=== PATIENT | female | born 1945 | race Caucasian/White ===

== ENCOUNTER → 2016-06-09 | Outpatient (REF) | payer BC | LOC: M LAB REF 09:18 | PROVIDERS: ATTEND Physician Assistant | DX: J02.9 Acute pharyngitis, unspecified (principal) ==

== ENCOUNTER → 2016-08-07 | Outpatient (CLI) | payer BC, MEDICARE ==
[2016-08-07 06:59] LABS: ALBUMIN 4.3 GM/DL (3.2-5.2); ALBUMIN/GLOBULIN RATIO 1.48 (1.00-1.93); ALKALINE PHOSPHATASE 67 U/L (45-117); ALT/SGPT 64 U/L (12-78); ANION GAP 8 MEQ/L (8-16); AST/SGOT 28 U/L (15-37); BILIRUBIN,TOTAL 0.7 MG/DL (0.2-1.0); BLOOD UREA NITROGEN 29 MG/DL (7-18); CALCIUM LEVEL 9.8 MG/DL (8.8-10.2); CARBON DIOXIDE LEVEL 25 MEQ/L (21-32); CHLORIDE LEVEL 107 MEQ/L (98-107); CHOLESTEROL LEVEL 140 MG/DL (<200); CREATININE FOR GFR 0.68 MG/DL (0.55-1.02); GLOMERULAR FILTRATION RATE > 60.0 (>39); GLUCOSE, FASTING 110 MG/DL (83-110); POTASSIUM SERUM 4.2 MEQ/L (3.5-5.1); SODIUM LEVEL 140 MEQ/L (136-145); TOTAL PROTEIN 7.2 GM/DL (6.4-8.2); TRIGLYCERIDES LEVEL 170 MG/DL (<150)
== END ==
LOC: M LAB 06:19
PROVIDERS: ATTEND Internal Medicine
DX: I10 Essential (primary) hypertension (principal)

== ENCOUNTER → 2017-08-18 | Outpatient (CLI) | payer MEDICARE | LOC: M WHC 09:50 | DX: Z12.31 Encounter for screening mammogram for malignant neoplasm of breast (principal) | CPT/HCPCS: 77067 ==

== ENCOUNTER 2018-05-14 08:36 | Day surgery (SDC) | payer MEDICARE ==
[~2018-05-14] VITALS: Ht 162.6 cm; Wt 82.9 kg
[~2018-05-14 08:36] MED LIST: AMLO1TAB37 PO; BENA20TA8 PO; CHLO125TA PO; FENO145T13 PO; METO1TAB87 PO; METO50TA7 PO; NS 1,000 ML IV ONE
[2018-05-14] MEDS ORDERED: PROPOFOL 500 MG/50 ML VIAL As Ordered ONE (09:07)
[2018-05-14] MEDS ORDERED: LIDOCAINE 2% INJ 100 MG/5 ML SDV (FOR ANES.) As Ordered ONE (09:07)
[2018-05-14] MEDS ORDERED: ePHEDrine SULFATE 25 MG/5 ML(5MG/ML) SYRINGE As Ordered ONE (09:23)
--- NOTE | 2018-05-14 09:42 | ROOR ---
Patient Name: Elizabeth Long Procedure Date: 05/14/2018 9:06 AM Date of : 1945 Age: 72 Room: [facility] Gender: Female Note Status: Finalized Procedure: Total Colonoscopy to Cecum + Cold Snare Polypectomy + Hemoclips Indications: Colon cancer screening in patient at increased risk: Colorectal cancer in mother, Colon cancer screening in patient at increased risk: Colorectal cancer in father Providers: Raymundo Dumont MD Referring MD: SIMON HUERTA MD Requesting Provider: Medicines: Monitored Anesthesia Care Complications: No immediate complications. Procedure: Pre-Anesthesia Assessment: - The heart rate, respiratory rate, oxygen saturations, blood pressure, adequacy of pulmonary ventilation, and response to care were monitored throughout the procedure. The Colonoscope was introduced through the anus and advanced to the cecum, identified by appendiceal orifice and ileocecal valve. The colonoscopy was performed without difficulty. The patient tolerated the procedure well. The quality of the bowel preparation was excellent. Findings: The perianal and digital rectal examinations were normal. Non-bleeding internal hemorrhoids were found during retroflexion. The hemorrhoids were small and Grade I (internal hemorrhoids that do not prolapse). Scattered small-mouthed diverticula were found in the recto-sigmoid colon, sigmoid colon and descending colon. A small polyp was found in the transverse colon. The polyp was sessile. The polyp was removed with a jumbo cold forceps. Resection and retrieval were complete. A medium polyp was found at 60 cm proximal to the anus. The polyp was sessile. The polyp was removed with a cold snare. Resection and retrieval were complete. To prevent bleeding after the polypectomy, one hemostatic clip was successfully placed (MR conditional). There was no bleeding at the end of the procedure. A localized area of mildly erythematous and granular mucosa was found at 25 cm proximal to the anus. Biopsies were taken with a cold forceps for histology. A localized area of mildly granular mucosa was found at 20 cm proximal to the anus. Biopsies were taken with a cold forceps for histology. The exam was otherwise without abnormality on direct and retroflexion views. The terminal ileum appeared normal. Impression: - Non-bleeding internal hemorrhoids. - Diverticulosis in the recto-sigmoid colon, in the sigmoid colon and in the descending colon. - One small polyp in the transverse colon, removed with a jumbo cold forceps. Resected and retrieved. - One medium polyp at 60 cm proximal to the anus, removed with a cold snare. Resected and retrieved. Clip (MR conditional) was placed. - Erythematous and granular mucosa at 25 cm proximal to the anus. Biopsied. - Granular mucosa at 20 cm proximal to the anus. Biopsied. - The examination was otherwise normal on direct and retroflexion views. - The examined portion of the ileum was normal. - The exam was otherwise normal to the cecum. Recommendation: - Patient has a contact number available for emergencies. The signs and symptoms of potential delayed complications were discussed with the patient. Return to normal activities tomorrow. Written discharge instructions were provided to the patient. - High fiber diet. - Discharge patient to home. - Continue present medications. - Await pathology results. - Telephone GI clinic for pathology results in 1 week. - Repeat colonoscopy for surveillance based on pathology results. - The findings and recommendations were discussed with the patient's family. Raymundo Dumont MD Raymundo Dumont MD 05/14/2018 9:42:22 AM This report has been signed electronically. Number of Addenda: 0 Note Initiated On: 05/14/2018 9:06 AM Estimated Blood Loss: Estimated blood loss: none.
[2018-05-14 10:05] VITALS: BP 114/57
== END 2018-05-14 10:30 | disposition home or self-care (01) ==
LOC: M OPP 08:36
PROVIDERS: ATTEND Internal Medicine Gastroenterology
DX: Z12.11 Encounter for screening for malignant neoplasm of colon (principal); Z80.0 Family history of malignant neoplasm of digestive organs; K64.0 First degree hemorrhoids; D12.3 Benign neoplasm of transverse colon; K63.89 Other specified diseases of intestine; K57.30 Diverticulosis of large intestine without perforation or abscess without bleeding

== ENCOUNTER → 2018-09-20 | Outpatient (CLI) | payer MEDICARE ==
[~2018-09-20] MED LIST changes: -FENO145T13 PO; +FENO145T7 PO; -NS 1,000 ML IV ONE
--- NOTE | 2018-09-20 12:35 | REP ---
PA and lateral chest: Comparison is 08/27/2016. The lung chacko are clear. The cardiac size is normal. The alka, mediastinum, and skeletal structures are unremarkable except for interim surgery in the distal right clavicle. Impression: Essentially negative PA and lateral chest. Electronically Signed by Reynold Grove MD 09/20/2018 12:27 P
== END ==
LOC: M WUC 11:37
PROVIDERS: ATTEND Internal Medicine
DX: J44.9 Chronic obstructive pulmonary disease, unspecified (principal)

== ENCOUNTER 2020-03-09 14:08 | Emergency (ER) | payer MEDICARE ==
[~2020-03-09] VITALS: Ht 162.6 cm; Wt 84.6 kg
[2020-03-09] MEDS ORDERED: AMLO5CAP45 PO (14:45)
[2020-03-09] MEDS ORDERED: BREO1INH INH (14:45)
--- NOTE | 2020-03-09 14:50 | REP ---
INDICATION: left weak COMPARISON: None. TECHNIQUE: Axial noncontrast images from the skull base to the thoracic inlet with coronal reformations. This CT examination was performed using the following dose reduction techniques: Automated exposure control, adjustment of mA and/or kv according to the patient's size, and use of iterative reconstruction technique. FINDINGS: Age-related atrophy and microvascular ischemic changes are appreciated. The ventricles and sulci are symmetric. Magana-white differentiation is maintained. There is no evidence for acute intracranial hemorrhage, mass/mass effect, pathology or infarction. No extra-axial fluid collection. Calvarium is intact. Paranasal sinuses and mastoid air cells are clear. IMPRESSION: Age related atrophy and microvascular ischemic changes. No acute intracranial hemorrhage, infarction, or mass/mass effect. <Electronically signed by Magnus Blankenship > 03/09/20 [id number]
[2020-03-09] MEDS ORDERED: NS 1,000 ML IV SCH ×2 (15:30→19:23)
[2020-03-09 15:43] LABS: BASO % 0.4 % (0.0-1.0); EOS % 0.1 % (0.0-3.0); HEMATOCRIT 62.4 % (36.0-47.0); HEMOGLOBIN 18.9 g/dl (12.0-15.5); LYMPH # 0.5 10^3/uL (1.5-5.0); LYMPH % 4.9 % (24.0-44.0); MEAN CORPUSCULAR HEMOGLOBIN 30.5 pg (27.0-33.0); MEAN CORPUSCULAR HGB CONC 30.3 g/dl (32.0-36.5); MEAN CORPUSCULAR VOLUME 100.8 fl (80.0-96.0); MONO # 0.6 10^3/uL (0.0-0.8); MONO % 5.8 % (0.0-5.0); NEUTROPHILS # 9.7 10^3/uL (1.5-8.5); NEUTROPHILS % 88.2 % (36.0-66.0); PLATELET COUNT, AUTOMATED 234 10^3/uL (150-450); RED BLOOD COUNT 6.19 10^6/uL (4.00-5.40)
[2020-03-09] MEDS ORDERED: CHLORTHALIDONE 12.5MG PER 1/2 TABLET PO ONE (15:45)
[2020-03-09] MEDS ORDERED: METOPROLOL TART 50 MG TAB PO ONE (15:45)
[2020-03-09] MEDS ORDERED: BENAZEPRIL 20 MG TAB PO ONE (15:45)
[2020-03-09] MEDS ORDERED: amLODIPine 5 MG TAB PO ONE (15:45)
--- NOTE | 2020-03-09 16:28 | REP ---
INDICATION: CVA COMPARISON: 09/20/2018 TECHNIQUE: Portable AP view of the chest FINDINGS: The mediastinum and cardiac silhouette are stable and within normal limits for portable technique. The lung chacko are clear without acute consolidation, effusion, or pneumothorax. Skeletal structures are intact. IMPRESSION: No acute cardiopulmonary process appreciated. <Electronically signed by Magnus Blankenship > 03/09/20 [id number]
[2020-03-09 16:38] LABS: RSV AMPLIFICATION NEGATIVE (NEGATIVE)
[2020-03-09 17:08] LABS: INR 1.12; PROTHROMBIN TIME 14.7 SECONDS (12.5-14.3)
[2020-03-09] MEDS ORDERED: LABETALOL 100MG/20ML VIAL IV STA ×3 (17:33→22:25)
[2020-03-09 18:18] LABS: ALT/SGPT 806 U/L (12-78); BILIRUBIN,DIRECT 2.1 MG/DL (0.0-0.2); BILIRUBIN,TOTAL 3.2 MG/DL (0.2-1.0); BLOOD UREA NITROGEN 36 MG/DL (7-18); CALCIUM LEVEL 9.2 MG/DL (8.8-10.2); CARBON DIOXIDE LEVEL 17 MEQ/L (21-32); CHLORIDE LEVEL 108 MEQ/L (98-107); CK-MB VALUE MASS 2.7 NG/ML (<3.6); CPK CREATINE PHOSPHOKINASE 159 U/L (26-192); CREATININE FOR GFR 1.66 MG/DL (0.55-1.30); GLOMERULAR FILTRATION RATE 32.2 (>39); GLUCOSE, FASTING 285 MG/DL (70-100); SODIUM LEVEL 138 MEQ/L (136-145); TOTAL PROTEIN 7.3 GM/DL (6.4-8.2); TROPONIN I < 0.02 NG/ML (< 0.10)
--- NOTE | 2020-03-09 18:38 | REPVR ---
PROCEDURE INFORMATION: Exam: CT Abdomen And Pelvis Without Contrast Exam date and time: 03/09/2020 5:46 PM Age: 74 years old Clinical indication: Abdominal pain; Generalized; Additional info: Abd pain TECHNIQUE: Imaging protocol: Computed tomography of the abdomen and pelvis without contrast. Radiation optimization: All CT scans at this facility use at least one of these dose optimization techniques: automated exposure control; mA and/or kV adjustment per patient size (includes targeted exams where dose is matched to clinical indication); or iterative reconstruction. COMPARISON: No relevant prior studies available. FINDINGS: Lungs: No suspicious mass or airspace process in the visualized lung bases. Mediastinal space: Hiatal hernia is present measuring 7 cm. Liver: Liver is enlarged and decreased in density suggesting hepatic steatosis. Gallbladder and bile ducts: Gallstones are present in the gallbladder lumen. No adjacent fluid or duct dilatation. Pancreas: Pancreas is diffusely edematous with peripancreatic stranding and non organized fluid. No obvious calcified duct stone or organized, drainable fluid collection. Density of the peripancreatic fluid is transudate and not hemorrhagic density. Spleen: Noncontrast spleen shows no obvious focal deformity. Adrenal glands: Adrenal glands are normal in appearance. Kidneys and ureters: Noncontrast kidneys show no stone or obstruction. Simple fluid density exophytic 14 mm posterior left renal cyst, requiring no follow-up, and similar posterior lower pole 14 mm left renal simple cyst measuring 6 mm, also requiring no follow-up. Stomach and bowel: No evidence of small bowel obstruction. Diverticular changes are present within the colon without inflammation. Appendix: Appendix is not seen. No RLQ inflammation to suggest appendicitis. Intraperitoneal space: No pneumoperitoneum. Vasculature: Atherosclerotic change present in the aorta, without aneurysm. Lymph nodes: No enlarged lymph nodes. Urinary bladder: Urinary bladder appears normal. Reproductive: Uterus is surgically absent. Bones/joints: Degenerative changes are seen in the lumbar spine with disc height loss, endplate osteophytes and hypertrophic facet arthropathy. Soft tissues: Unremarkable. Exam limitations: Limited evaluation without enteric or IV contrast. Limited by significant artifact resulting from the patient being scanned with the arms over the upper abdomen. IMPRESSION: 1. Acute pancreatitis with diffuse pancreatic enlargement/edema, peripancreatic inflammation and non organized peripancreatic fluid. No obvious pancreatic air or organized drainable collection. 2. Cholelithiasis. 3. Hepatomegaly and hepatic steatosis. 4. Large hiatal hernia measuring 7 cm. COMMENTS: Consistent with the [employer]'s Incidental Findings Committee white paper (J Am Tino Radiol 2018): Any incidental renal lesion less than 1 cm or classified as too small to characterize, or any incidental cystic renal lesion characterized as simple-appearing, is likely benign. No follow-up imaging is recommended for these lesions per consensus recommendations based on imaging criteria. Electronically signed by: Joe Santiago On 03/09/2020 18:38:33 PM
[2020-03-09] MEDS ORDERED: PIPERACILLIN/TAZOBACTAM SOD 3.375 GM in D5W MINI-BAG PLUS 50 ML IV ONE (18:45)
[2020-03-09 19:14] LABS: LIPASE 11029 U/L (73-393)
[2020-03-09] MEDS ORDERED: AMLOD/BENAZEPRIL PO (19:16)
[2020-03-09] MEDS ORDERED: CHLO25TA PO (19:18)
[2020-03-09] MEDS ORDERED: METO1TAB7 PO (19:18)
[2020-03-09] MEDS ORDERED: MED REC COMMENT (19:22)
[2020-03-09] MEDS ORDERED: OLANZapine INTRAMUSCULAR 10MG VIAL IM STA (20:04)
[2020-03-09] MEDS ORDERED: LORazepam 2 MG/ML VIAL IV STA (20:04)
--- NOTE | 2020-03-09 20:30 | REPVR ---
PROCEDURE INFORMATION: Exam: MR Angiogram Head Without Contrast, Arteries Exam date and time: 03/09/2020 8:11 PM Age: 74 years old Clinical indication: Patient HX: Ruq pain, lt arm weakness, gall stones and pancreatitis found on CT on pacs; Additional info: Left arm weak TECHNIQUE: Imaging protocol: MR angiogram head without contrast. Exam focused on the arteries. 3D rendering (Not supervised by radiologist): MIP and/or 3D reconstructed images were created by the technologist. Other technique: MRA is recommended to evaluate for vascular structures. COMPARISON: CT Head without contrast 03/09/2020 2:33 PM FINDINGS: ANTERIOR CIRCULATION: Right internal carotid artery: Intracranial segment is patent with no significant stenosis. No aneurysm. Right middle cerebral artery: No occlusion or significant stenosis. No aneurysm. Right anterior cerebral artery: No occlusion or significant stenosis. No aneurysm. Left internal carotid artery: Intracranial segment is patent with no significant stenosis. No aneurysm. Left middle cerebral artery: No occlusion or significant stenosis. No aneurysm. Left anterior cerebral artery: No occlusion or significant stenosis. No aneurysm. POSTERIOR CIRCULATION: Right vertebral artery: No occlusion or significant stenosis. No aneurysm. Left vertebral artery: No occlusion or significant stenosis. No aneurysm. Basilar artery: No occlusion or significant stenosis. No aneurysm. Right posterior cerebral artery: Complete occlusion of the right posterior cerebral artery. Left posterior cerebral artery: No occlusion or significant stenosis. No aneurysm. IMPRESSION: Complete occlusion of the right posterior cerebral artery. PROCEDURE INFORMATION: Exam: MR Head Without Contrast Exam date and time: 03/09/2020 8:11 PM Age: 74 years old Clinical indication: Patient HX: Ruq pain, lt arm weakness, gall stones and pancreatitis found on CT on pacs; Additional info: Left arm weak TECHNIQUE: Imaging protocol: MR of the head without contrast. Other technique: MRA is recommended to evaluate for vascular structures. COMPARISON: CT Head without contrast 03/09/2020 2:33 PM FINDINGS: Limitations: Examination is limited markedly by motion artifact. Prominent foci of restricted diffusion within the right thalamus, right occipital lobe, and right temporal lobe, compatible with acute right DIRECTOR OF EM[employer]GENCY NURSING territory infarct. Additional small scattered foci of restricted diffusion within the left occipital lobe (left [employer] territory). These findings are as demonstrated on DWI and ADC sequences. Remaining MR sequences are markedly limited by motion artifact. No definite midline shift or mass effect. No ventriculomegaly. IMPRESSION: Large acute right [employer] territory infarct. Additional scattered foci of restricted diffusion within the left occipital lobe concerning for additional acute infarcts (left [employer] OF [employer] NURSING territory). Note: Examination markedly limited by motion artifact. On prior head CT performed on same date, there are findings concerning for small foci of acute subarachnoid hemorrhage within left parietal sulci. Electronically signed by: Sebastian Pena On 03/09/2020 20:31:10 PM
--- NOTE | 2020-03-09 20:37 | REPVR ---
PROCEDURE INFORMATION: Exam: MR Angiogram Head Without Contrast, Arteries Exam date and time: 03/09/2020 8:11 PM Age: 74 years old Clinical indication: Patient HX: Ruq pain, lt arm weakness, gall stones and pancreatitis found on CT on pacs; Additional info: Left arm weak TECHNIQUE: Imaging protocol: MR angiogram head without contrast. Exam focused on the arteries. 3D rendering (Not supervised by radiologist): MIP and/or 3D reconstructed images were created by the technologist. Other technique: MRA is recommended to evaluate for vascular structures. COMPARISON: CT Head without contrast 03/09/2020 2:33 PM FINDINGS: ANTERIOR CIRCULATION: Right internal carotid artery: Intracranial segment is patent with no significant stenosis. No aneurysm. Right middle cerebral artery: No occlusion or significant stenosis. No aneurysm. Right anterior cerebral artery: No occlusion or significant stenosis. No aneurysm. Left internal carotid artery: Intracranial segment is patent with no significant stenosis. No aneurysm. Left middle cerebral artery: No occlusion or significant stenosis. No aneurysm. Left anterior cerebral artery: No occlusion or significant stenosis. No aneurysm. POSTERIOR CIRCULATION: Right vertebral artery: No occlusion or significant stenosis. No aneurysm. Left vertebral artery: No occlusion or significant stenosis. No aneurysm. Basilar artery: No occlusion or significant stenosis. No aneurysm. Right posterior cerebral artery: Complete occlusion of the right posterior cerebral artery. Left posterior cerebral artery: No occlusion or significant stenosis. No aneurysm. IMPRESSION: Complete occlusion of the right posterior cerebral artery. PROCEDURE INFORMATION: Exam: MR Head Without Contrast Exam date and time: 03/09/2020 8:11 PM Age: 74 years old Clinical indication: Patient HX: Ruq pain, lt arm weakness, gall stones and pancreatitis found on CT on pacs; Additional info: Left arm weak TECHNIQUE: Imaging protocol: MR of the head without contrast. Other technique: MRA is recommended to evaluate for vascular structures. COMPARISON: CT Head without contrast 03/09/2020 2:33 PM FINDINGS: Limitations: Examination is limited markedly by motion artifact. Prominent foci of restricted diffusion within the right thalamus, right occipital lobe, and right temporal lobe, compatible with acute right CARDIAC RN territory infarct. Additional small scattered foci of restricted diffusion within the left occipital lobe (left CARDIAC RN territory). These findings are as demonstrated on DWI and ADC sequences. Remaining MR sequences are markedly limited by motion artifact. No definite midline shift or mass effect. No ventriculomegaly. IMPRESSION: Large acute right CARDIAC RN territory infarct. Additional scattered foci of restricted diffusion within the left occipital lobe concerning for additional acute infarcts (left CARDIAC RN territory). Note: Examination markedly limited by motion artifact. On prior head CT performed on same date, there are findings concerning for small foci of acute subarachnoid hemorrhage within left parietal sulci. Electronically signed by: Sebastian Pena On 03/09/2020 20:31:10 PM
--- NOTE | 2020-03-09 20:40 | HPEPDOC ---
General Date of Admission Mar 09, 2020 at 18:43 Date of Service: Mar 09, 2020 Chief Complaint The patient is a 74-year-old female admitted with a reason for visit of Altered Mental Status/Hypertensive Emergency. Source: Patient, Family History of Present Illness Mrs. Long is a 74 year old female with COPD, current smoker, and resistant hypertension who presents to the ED after a fall. Patient story is inconsistent, and I spoke with both ED provider and daughter (Sho Garcia, ). About 1 week ago, patient tells me she started to have abdominal pain. Her appe tite was not great. Since her appetite was poor, she told me she did not take her blood pressure medications yesterday (Patient's friend reported that it was this morning, she did not take her medications). She was last seen normal at 9PM. Around 1PM today, she fell out of bed and came to the ED. While in the ED, she was found to have left sided weakness and hypertension with BP consistently in the 230s/110s. She could lift left arm up, but not keep left arm up. Left leg had drift when lifted. No problems with right arm or right leg. No facial droop or slurred speech. EOMI. Patient does seen confused and disorientated. ED had already given metoprolol tartrate, chlorthalidone, amlodipine, and benazepril. I remeasured BP and blood pressure was 211/110. After placing admission orders, ED had given labetalol and blood pressure dropped to 153/86. In addition, the official read for the CT abd/pelvis returned demonstrating acute pancreatitis. I called daughter to update her and let her kn ow we are ordering an MRI to look for an ischemic stroke and MRCP for gallstone pancreatitis or choledocholithiasis. Home Medications Scheduled Chlorthalidone (Chlorthalidone) 25 Mg Tablet, 25 MG PO DAILY, (Reported) Fluticasone/Vilanterol (Breo Ellipta 100-25 Mcg INH) 1 Each Blst.w.dev, 1 PUFF INH DAILY, (Reported) Metoprolol Succinate (Metoprolol Succinate) 50 Mg Tab.er.24h, 50 MG PO DAILY, (Reported) [Amlod/Benazepril] 5,/20 , 1 TAB PO DAILY, (Reported) Allergies Coded Allergies: No Known Allergies (Unverified , 03/09/20) Past Medical History Medical History 1. Resistant hypertension 2. COPD 3. Tobacco use Surgical History 1. Hernia surgery 2. Hysterectomy 3. 2 exploratory lap 4. Colonoscopy Family History Patient does not know parent's past medical history Social History * Smoker: current smoker (Long time, but does not know how long. About 1ppd) Alcohol: Denies Drugs: denies Of note, patient has AMS during recording of social history A-FIB/CHADSVASC A-FIB History Current/History of A-Fib/PAF?: No Review of Systems Constitutional: Denies: Chills, Fever Eyes: Denies: Vision change ENT: Reports: Head Aches Skin: Denies: Rash Pulmonary: Reports: Dyspnea Cardiovascular: Denies: Chest Pain Gastrointestinal: Reports: Nausea, Abdominal Pain Genitourinary: Denies: Dysuria Hematologic: Denies: Bruising Neurological: Reports: Weakness Physical Examination General Exam: Positive: Cooperative, Mild Distress Eye Exam: Positive: EOMI; Negative: Sclera icteric Neck Exam: Positive: Supple Chest Exam: Positive: Clear to auscultation; Negative: Rales, Rhonchi, Wheezing Heart Exam: Positive: Rate Normal, Regular Rhythm Abdomen Exam: Positive: Normal bowel sounds, Tenderness Extremity Exam: Negative: Edema Skin Exam: Positive: Nl turgor and temperature Neuro Exam: Positive: Cranial Nerves 3-12 NL Psych Exam: Negative: Memory Intact, Oriented x 3 Vital Signs Vital Signs Date Time Temp Pulse Resp B/P (MAP) Pulse Ox O2 Delivery O2 Flow Rate FiO2 03/09/20 18:46 153/86 (108) 03/09/20 18:45 84 90 03/09/20 18:30 18 Room Air 03/09/20 14:27 97.4 Laboratory Data Labs 24H Laboratory Tests 2 03/09/20 15:05: Immature Granulocyte % (Auto) 0.6, Neutrophils (%) (Auto) 88.2H, Lymphocytes (%) (Auto) 4.9L, Monocytes (%) (Auto) 5.8H, Eosinophils (%) (Auto) 0.1, Basophils (%) (Auto) 0.4, Neutrophils # (Auto) 9.7H, Lymphocytes # (Auto) 0.5L, Monocytes # (Auto) 0.6, Eosinophils # (Auto) 0.0, Basophils # (Auto) 0.0, Nucleated Red Blood Cells % (auto) 0.0, Coronavirus (COVID-19)(PCR) NEGATIVE, Influenza Type A (RT-PCR) NEGATIVE, Influenza Type B (RT-PCR) NEGATIVE, Respiratory Syncytial Virus (PCR) NEGATIVE 03/09/20 16:44: Prothrombin Time 14.7H, Prothromb Time International Ratio 1.12, Activated Partial Thromboplast Time 34.0, Anion Gap 13, Glomerular Filtration Rate 32.2L, Calcium Level 9.2, Total Bilirubin 3.2H, Direct Bilirubin 2.1H, Aspartate Amino Transf (AST/SGOT) 421H, Alanine Aminotransferase (ALT/SGPT) 806H, Alkaline Phosphatase 85, Total Creatine Kinase 159, Creatine Kinase MB 2.7, Creatine Kinase MB Relative Index 1.70, Troponin I < 0.02, Total Protein 7.3, Albumin 4.0, Albumin/Globulin Ratio 1.2 03/09/20 18:20: Urine Color VLAD, Urine Appearance CLOUDYH, Urine pH 5.0, Urine Specific Walker 1.023, Urine Protein 2+H, Urine Glucose (UA) NEGATIVE, Urine Ketones NEGATIVE, Urine Blood 1+H, Urine Nitrite NEGATIVE, Urine Bilirubin 1+H, Urine Urobilinogen 2.0H, Urine Leukocyte Esterase 2+H, Urine WBC (Auto) 65H, Urine RBC (Auto) 6H, Urine Hyaline Casts (Auto) 0, Urine Bacteria (Auto) 2+H, Urine Squamous Epithelial Cells 1, Urine Sperm (Auto) 03/09/20 18:28: Lactic Acid Level 2.4*H, Ammonia 17, Lipase 17382W CBC/BMP Laboratory Tests 03/09/20 15:05 03/09/20 16:44 Microbiology Microbiology 03/09/20 Urine Culture, Received Pending 03/09/20 Blood Culture, Received Pending Assessment/Plan Mrs. Long is a 74 year old female with tobacco use and resistant hypertension here with hypertensive urgency/emergency, stroke like symptoms of left sided weakness, and pancreatitis. A stat MRI of head has been requested. Called nursing banana ripening room supervisor to call in can technician. If here is an ischemic stroke, patient should be allowed permissive hypertension. If there is no stroke, then should be treated as hypertensive emergency. A stat MRCP has been requested. CT abd/pelvis does demonstrate gall stones, but there is no CBD dilatation. Labs are suggestive of gallstone pancreatitis with elevated AST (421) and ALT (806). Total bili also elevated at 3.2. She may have passed a gallstone which would explain the findings. She could still have a gallstone as well. If gallstone is present, she will need to be transferred to a facility that can perform an ERCP Otherwise, will waiting for results, we will treat acute pancreatitis with IVF and strict NPO. Other differential for pancreatitis includes medications (she is on ACEi and thiazides), triglycerides, autoimmune, or idiopathic. Plan / VTE VTE Prophylaxis Ordered?: Yes Plan Plan 1. Left sided weakness -May be secondary to hypertensive emergency vs ischemic stroke -If stroke, allow for permissive hypertension -If hypertensive emergency, lower BP slowly 2. Hypertension -Non-compliant with home blood pressure medications due to N/V/abd pain -At home on chlorthalidone, metoprolol succinate, amlodipine, and benazepril -See first assessment and plan -Will need to use IV blood pressure control -End organ damage seen in kidney, liver, and gallbladder 3. Acute pancreatitis -Abdominal pain, N/V/anorexia, elevated lipase, and CT imaging suggest acute pancreatitis -Possible gallstone pancreatitis. Suggested by labs, but not seen on imaging -STAT MRCP, may need transfer -Other causes would be medications (chlorthalidone/benazepril) -NPO and aggressive IVF -Check triglycerides -Trend CMP and lipase (75882) 4. Transaminitis -Elevated AST (421) and ALT (806) -Gallstones in gallbladder -Gallstone pancreatitis vs end organ damage from hypertension -Pending MRCP -Trend CMP 5. Acute kidney injury -Acute pancreatitis and poor oral intake -Hypertensive damage may also cause ELINA -IVF and supportive care 6. Polycythemia -May be secondary to tobacco use vs dehydration from acute pancreatitis -Trend and treat acute pancreatitis 7. UTI -UA suggestive of infection -Renally dose Zosyn -Pending urine cultures 8. DVT ppx -SCD and TEDs Disposition: if MRCP does demonstrate gallstone pancreatitis, she will need to be transferred for ERCP FIOR BROWER DO Mar 09, 2020 20:40
[2020-03-09 20:48] LABS: TRIGLYCERIDES LEVEL 320 MG/DL (<150)
[2020-03-09] MEDS ORDERED: PIPERACILLIN/TAZOBACTAM SOD 2.25 GM in D5W MINI-BAG PLUS 50 ML IV SCH (22:00)
--- NOTE | 2020-03-09 22:13 | CR.PDOC ---
General Date of Consultation: Mar 09, 2020 Consultation REASON FOR CONSULTATION/CHIEF COMPLAINT: Left sided weakness, abdominal pain HISTORY OF PRESENT ILLNESS: Mrs. Long is a 74 year old female with COPD, current smoker, and resistant hypertension who presents to the ED after a fall. Patient story is inconsistent, and I spoke with both ED provider and daughter (Sho Story, ). About 1 week ago, patient tells me she started to have abdominal pain. Her appetite was not great. Since her appetite was poor, she told me she did not take her blood pressure medications yesterday (Patient's friend reported that it was this morning, she did not take her medications). She was last seen normal at 9PM. Around 1PM today, she fell out of bed and came to the ED. While in the ED, she was found to have left sided weakness and hypertension with BP consistently in the 230s/110s. She could lift left arm up, but not keep left arm up. Left leg had drift when lifted. No problems with right arm or right leg. No facial droop or slurred speech. EOMI. Patient does seen confused and disorientated. ED had already given metoprolol tartrate, chlorthalidone, amlodipine, and benazepril. Stat MRI was ordered. Radiologist called for critical report. 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 and acute subarachnoid hemorrhage within left parietal sulci. Spoke with our neurologist, and he recommended transfer. Our ER contacted [facility] for transfer and they accepted. ALLERGIES: Please see below. HOME MEDICATIONS: Please see below. PAST MEDICAL HISTORY: 1. Resistant hypertension 2. COPD 3. Tobacco use PAST SURGICAL HISTORY: 1. Hernia surgery 2. Hysterectomy 3. 2 exploratory lap 4. Colonoscopy FAMILY HISTORY: Patient does not know parent's past medical history SOCIAL HISTORY: Tobacco use: Current smoker, 1ppd, she does not know how long she smoked for ETOH: Denies Illicit drug use: Denies REVIEW OF SYSTEMS: Constitutional: Denies: Chills, Fever Eyes: Denies: Vision change ENT: Reports: Head Aches Skin: Denies: Rash Pulmonary: Reports: Dyspnea Cardiovascular: Denies: Chest Pain Gastrointestinal: Reports: Nausea, Abdominal Pain Genitourinary: Denies: Dysuria Hematologic: Denies: Bruising Neurological: Reports: Weakness PHYSICAL EXAMINATION: VITAL SIGNS: Please see below. General Exam: Positive: Cooperative, Mild Distress Eye Exam: Positive: EOMI; Negative: Sclera icteric Neck Exam: Positive: Supple Chest Exam: Positive: Clear to auscultation; Negative: Rales, Rhonchi, Wheezing Heart Exam: Positive: Rate Normal, Regular Rhythm Abdomen Exam: Positive: Normal bowel sounds, Tenderness Extremity Exam: Negative: Edema Skin Exam: Positive: Nl turgor and temperature Neuro Exam: Positive: Cranial Nerves 3-12 NL Psych Exam: Negative: Memory Intact, Oriented x 3 LABORATORY DATA: Please see below. ASSESSMENT/PLAN: 1. Acute subarachnoid hemorrhage within left parietal sulci -Initial CT head read did not mention hemorrhage -MRI radiologist looked at CT head read and commented that there is subarachnoid hemorrhage -Contacted Neurology, Dr. Tejada who recommended transfer -ED to ED transfer to [facility] -Recommend BP control to prevent worsening hemorrhage 2. 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 Resistant Hypertension -Non-compliant with home blood pressure medications due to N/V/abd pain -At home on chlorthalidone, metoprolol succinate, amlodipine, and benazepril -Will need to use IV blood pressure control -End organ damage seen in kidney, liver, and gallbladder 3. Acute pancreatitis -Abdominal pain, N/V/anorexia, elevated lipase, and CT imaging suggest acute pancreatitis -Possible gallstone pancreatitis. Suggested by labs, but not seen on imaging -Recommend MRCP -Other causes would be medications (chlorthalidone/benazepril) -NPO -Check triglycerides -Trend CMP and lipase (04190) 4. Transaminitis -Elevated AST (421) and ALT (806) -Gallstones in gallbladder -Gallstone pancreatitis vs end organ damage from hypertension -Pending MRCP -Trend CMP 5. Acute kidney injury -Acute pancreatitis and poor oral intake -Hypertensive damage may also cause ELINA -IVF and supportive care 6. Polycythemia -May be secondary to tobacco use vs dehydration from acute pancreatitis -Trend 7. UTI -UA suggestive of infection -Renally dose Zosyn -Pending urine cultures 8. DVT ppx -SCD and TEDs Disposition: Being transferred to [facility] for ICH. Thank you for consulting us. We will sign off as patient is being transferred to [facility]. Vital Signs/I&O Vital Signs Date Time Temp Pulse Resp B/P (MAP) Pulse Ox O2 Delivery O2 Flow Rate FiO2 03/09/20 18:46 153/86 (108) 03/09/20 18:45 84 90 03/09/20 18:30 18 Room Air 03/09/20 14:27 97.4 Laboratory Data Labs 24H Laboratory Tests 2 03/09/20 15:05: Immature Granulocyte % (Auto) 0.6, Neutrophils (%) (Auto) 88.2H, Lymphocytes (%) (Auto) 4.9L, Monocytes (%) (Auto) 5.8H, Eosinophils (%) (Auto) 0.1, Basophils (%) (Auto) 0.4, Neutrophils # (Auto) 9.7H, Lymphocytes # (Auto) 0.5L, Monocytes # (Auto) 0.6, Eosinophils # (Auto) 0.0, Basophils # (Auto) 0.0, Nucleated Red Blood Cells % (auto) 0.0, Coronavirus (COVID-19)(PCR) NEGATIVE, Influenza Type A (RT-PCR) NEGATIVE, Influenza Type B (RT-PCR) NEGATIVE, Respiratory Syncytial Virus (PCR) NEGATIVE 03/09/20 16:44: Prothrombin Time 14.7H, Prothromb Time International Ratio 1.12, Activated Partial Thromboplast Time 34.0, Anion Gap 13, Glomerular Filtration Rate 32.2L, Calcium Level 9.2, Total Bilirubin 3.2H, Direct Bilirubin 2.1H, Aspartate Amino Transf (AST/SGOT) 421H, Alanine Aminotransferase (ALT/SGPT) 806H, Alkaline Phosphatase 85, Total Creatine Kinase 159, Creatine Kinase MB 2.7, Creatine Kinase MB Relative Index 1.70, Troponin I < 0.02, Total Protein 7.3, Albumin 4.0, Albumin/Globulin Ratio 1.2 03/09/20 18:20: Urine Color VLAD, Urine Appearance CLOUDYH, Urine pH 5.0, Urine Specific Gra vity 1.023, Urine Protein 2+H, Urine Glucose (UA) NEGATIVE, Urine Ketones NEGATIVE, Urine Blood 1+H, Urine Nitrite NEGATIVE, Urine Bilirubin 1+H, Urine Urobilinogen 2.0H, Urine Leukocyte Esterase 2+H, Urine WBC (Auto) 65H, Urine RBC (Auto) 6H, Urine Hyaline Casts (Auto) 0, Urine Bacteria (Auto) 2+H, Urine Squamous Epithelial Cells 1, Urine Sperm (Auto) 03/09/20 18:28: Lactic Acid Level 2.4*H, Ammonia 17, Triglycerides Level 320H, Lipase 54074G CBC/BMP Laboratory Tests 03/09/20 15:05 03/09/20 16:44 Microbiology Microbiology 03/09/20 Urine Culture, Received Pending 03/09/20 Blood Culture, Received Pending Allergies Coded Allergies: No Known Allergies (Unverified , 03/09/20) Home Medications Scheduled Chlorthalidone (Chlorthalidone) 25 Mg Tablet, 25 MG PO DAILY, (Reported) Fluticasone/Vilanterol (Breo Ellipta 100-25 Mcg INH) 1 Each Blst.w.dev, 1 PUFF INH DAILY, (Reported) Metoprolol Succinate (Metoprolol Succinate) 50 Mg Tab.er.24h, 50 MG PO DAILY, (Reported) [Amlod/Benazepril] 5,/20 , 1 TAB PO DAILY, (Reported) FIOR BROWER DO Mar 09, 2020 22:12
[2020-03-09 22:30] VITALS: BP 167/79
[2020-03-09 22:37] VITALS: BP 170/71
--- NOTE | 2020-03-10 09:22 | ECGEPIP ---
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
== END 2020-03-09 22:44 | disposition short-term general hospital (02) ==
LOC: M ED 14:08 → M ED INP 18:43 → UNDOADMIN 18:43 → ENRESERV 20:01 → UNDODISIN 03-12 14:01
DX: I10 Essential (primary) hypertension (principal); K85.90 Acute pancreatitis without necrosis or infection, unspecified; S06.6X0A Traumatic subarachnoid hemorrhage without loss of consciousness, initial encounter; W06.XXXA Fall from bed, initial encounter; Y92.9 Unspecified place or not applicable; Y93.9 Activity, unspecified; Y99.9 Unspecified external cause status; R41.82 Altered mental status, unspecified; R53.1 Weakness; I66.21 Occlusion and stenosis of right posterior cerebral artery; K80.20 Calculus of gallbladder without cholecystitis without obstruction; K76.0 Fatty (change of) liver, not elsewhere classified; K44.9 Diaphragmatic hernia without obstruction or gangrene; Z91.14 Patient's other noncompliance with medication regimen; J44.9 Chronic obstructive pulmonary disease, unspecified; F17.200 Nicotine dependence, unspecified, uncomplicated; Z79.899 Other long term (current) drug therapy
CPT/HCPCS: 36415; 70450; 70544; 70551; 71045; 74176; 80048; 80076; 81001; 82140; 82550; 82553; 83605; 83690; 84478; 84484; 85025; 85610; 85730; 87040; 87088; 87186; 87631; 93005; 93041; 94760; 96361; 96372; 96374; 96375; 96376; 99285; J2060